=== PATIENT | male | born 1950 ===

== ENCOUNTER 2018-04-22 10:37 | Day surgery (SDC) | payer OTHER ==
[2018-04-22] MEDS ORDERED: LIDOCAINE 1% 2 ML INJ ID PRN (11:00)
[2018-04-22] MEDS ORDERED: LR 1,000 ML IV ONE (11:00)
--- NOTE | 2018-04-22 12:07 | PDANEPAE ---
ANE Past Medical History - Cardiovascular History Hx Hypertension: No Hx Arrhythmias: No Hx Chest Pain: No Hx Coronary Artery / Peripheral Vascular Disease: No Hx CHF / Valvular Disease: No Hx Palpitations: No - Pulmonary History Hx COPD: No Hx Asthma/Reactive Airway Disease: No Hx Recent Upper Respiratory Infection: No Hx Oxygen in Use at Home: No Hx Sleep Apnea: No Sleep Apnea Screening Result - Last Documented: Negative - Neurologic History Hx Cerebrovascular Accident: No Hx Seizures: No Hx Dementia: No - Endocrine History Hx Diabetes: No - Renal History Hx Renal Disorders: No - Liver History Hx Hepatic Disorders: No - Neurological & Psychiatric Hx Hx Neurological and Psychiatric Disorders: No - Cancer History Hx Cancer: No - Congenital Disorder History Hx Congenital Disorders: No - GI History Hx Gastrointestinal Disorders: Yes Gastrointestinal History Comment: HX OF POLYP. IBS - Other Health History Other Health History: NEG - Chronic Pain History Chronic Pain: No - Surgical History Prior Surgeries: PREV COLONOSCOPY/EGD. DIVYA ING HERNIA AGE 9. REMVL LT TESTICAL FOR GROWTH AGE 26 ANE Review of Systems Review of Systems: - Exercise capacity METS (RN): 5 METS ANE Patient History - Allergies Allergies/Adverse Reactions: No Known Allergies Allergy (Unverified 03/25/18 11:52) - Home Medications Home Medications: Amitiza BID 03/25/18 [Last Taken 1 Day Ago ~04/21/18] Aspirin 81mg (*) DAILY 03/25/18 [Last Taken 04/18/18] Herbals/Supplements -Info Only DAILY 03/25/18 [Last Taken 2 Days Ago ~04/20/18] Omeprazole DAILY 03/25/18 [Last Taken 1 Day Ago ~04/21/18] - NPO status NPO Since - Liquids (Date): 04/22/18 NPO Since - Liquids (Time): 02:00 NPO Since - Solids (Date): 04/21/18 NPO Since - Solids (Time): 06:00 - Smoking Hx Smoking Status: Former smoker ANE Labs/Vital Signs - Vital Signs Blood Pressure: 122/63 Heart Rate: 63 Respiratory Rate: 18 O2 Sat (%): 90 Height: 167.64 cm Weight: 63.503 kg ANE Physical Exam - Airway Neck exam: FROM Mallampati Score: Class 2 Mouth exam: normal dental/mouth exam - Pulmonary Pulmonary: no respiratory distress - Cardiovascular Cardiovascular: regular rate and rhythym - ASA Status ASA Status: II ANE Anesthesia Plan Total IV Anesthesia: Yes
[2018-04-22] MEDS ORDERED: LIDOCAINE 2% 100 MG/5 ML SYR ONE (12:13)
[2018-04-22] MEDS ORDERED: PROPOFOL/EMULSION 500 MG/50 ML BOTTLE IV ONE (12:13)
--- NOTE | 2018-04-22 12:15 | PDGENHP ---
History & Physical Chief Complaint: Barretts esophagus, Personal history of colon polyps History of Present Illness: Surveillance EGD for Barretts esophagus. Personal history of colon polyps Pertinent Past, Social, Family History: No FH Colon cancer. No FH Barretts. No Tobacco. No ETOH Relevant Physical Exam: NAD. NC/AT. OP clear. No JVD. CTA B/L. RRR without m/ r/g. GI soft. NABS. NT/ND Cardiorespiratory Assessment: ASA II. EGD. Colonoscopy with MAC
--- NOTE | 2018-04-22 12:28 | GIREPORT ---
[facility] - Endoscopy Department Patient Name: Parmjit Moore Procedure Date: 04/22/2018 12:15 PM Patient Type: Outpatient Attending MD/ ER Physician: Catracho Alonso MD Procedure: Upper GI endoscopy Indications: Mesa's esophagus Providers: Catracho Alonso MD Medicines: Propofol per Anesthesia Complications: No immediate complications. Description of Procedure: After obtaining informed consent, the endoscope was passed under direct vision. Throughout the procedure, the patient's blood pressure, pulse, and oxygen saturations were monitored continuously. The Endoscope was intro duced through the mouth, and advanced to the second part of duodenum. [facility] er GI endoscopy was accomplished without difficulty. The patient tolerated th e procedure well. Findings: The esophagus and gastroesophageal junction were examined with white li ght from a forward view and retroflexed position. There were esophageal muc osal changes consistent with long-segment Mesa's esophagus. These changes involved the mucosa at the upper extent of the gastric folds (40 cm fro m the incisors) extending to the Z-line (36 cm from the incisors). Squamous islands were present at 36 cm and squamous islands were present at 38 c m. The maximum longitudinal extent of these esophageal mucosal changes was 4 cm in length. Mucosa was biopsied with a cold forceps for histology. A tot al of 2 specimen bottles were sent to pathology. A medium-sized hiatal hernia was present. The stomach was normal. The examined duodenum was normal. Estimated Blood Loss: Estimated blood loss was minimal. Post Op Diagnosis: - Esophageal mucosal changes consistent with long-segment Mesa's esophagus. Biopsied. - Medium-sized hiatal hernia. - Normal stomach. - Normal examined duodenum. Recommendation: - Await pathology results. - Repeat upper endoscopy in 3 years for surveillance based on pathology results. - Resume previous diet. - Continue present medications. - Patient has a contact number available for emergencies. The signs and symptoms of potential delayed complications were discussed with the pat ient. Return to normal activities tomorrow. Written discharge instructions we re provided to the patient. - Thank you for allowing me to be involved in the care of your patient. Attending Participation: I personally performed the entire procedure without the assistance of a fellow, resident or surg ical geriatric nurse assistant. Catracho Alonso MD Catracho Alonso MD 04/22/2018 12:28:18 PM This report has been signed electronicallyDavid MD Celeste Number of Addenda: 0 Note Initiated On: 04/22/2018 12:15 PM [email or web address]
--- NOTE | 2018-04-22 12:55 | GIREPORT ---
[facility] Surgical Services - Endoscopy Department Patient Name: Parmjit Moore Procedure Date: 04/22/2018 12:28 PM Patient Type: Outpatient Attending MD/ ER Physician: Catracho Alonso MD Procedure: Colonoscopy Indications: High risk colon cancer surveillance: Personal history of sessile serrat ed colon polyp (10 mm or greater in size), High risk colon cancer surveill ance: Personal history of sessile serrated colon polyp with dysplasia Providers: Catracho Alonso MD Medicines: Propofol per Anesthesia Complications: No immediate complications. Description of Procedure: After obtaining informed consent, the scope was passed under direct vis ion. Throughout the procedure, the patient's blood pressure, pulse, and oxyg en saturations were monitored continuously. The Colonoscope with irrigatio n channel was introduced through the anus and advanced to the cecum, identified by appendiceal orifice and ileocecal valve. The colonoscopy was performed without difficulty. The patient tolerated the procedure well. The quality of the bowel preparation was good. The ileocecal valve, appendi ceal orifice, and rectum were photographed. Findings: The digital rectal exam findings include enlarged prostate. Pertinent negatives include normal sphincter tone and no palpable rectal lesions. A 14 mm post polypectomy scar was found in the proximal ascending colon . There was no evidence of the previous polyp. Biopsies were taken with a cold forceps for histology across the polypectomy scar to exclude any possib ility of residual serrated adenoma. Multiple small and large-mouthed diverticula were found in the sigmoid colon and descending colon. Estimated Blood Loss: Estimated blood loss: none. Post Op Diagnosis: - Enlarged prostate found on digital rectal exam. - Post-polypectomy scar in the proximal ascending colon. Biopsied. - Diverticulosis in the sigmoid colon and in the descending colon. Recommendation: - Await pathology results. - Repeat colonoscopy in 3 years for surveillance. - Resume previous diet. - Continue present medications. - Patient has a contact number available for emergencies. The signs and symptoms of potential delayed complications were discussed with the pat ient. Return to normal activities tomorrow. Written discharge instructions we re provided to the patient. - Thank you for allowing me to be involved in the care of your patient. Attending Participation: I personally performed the entire procedure without the assistance of a fellow, resident or surg ical paraprofessional education assistant. Catracho Alonso MD Catracho Alonso MD 04/22/2018 12:55:26 PM This report has been signed electronicallyDavid MD Celeste Number of Addenda: 0 Note Initiated On: 04/22/2018 12:28 PM Total Procedure Duration Time 0 hours 17 minutes 44 seconds [email or web address]
[2018-04-22] MEDS ORDERED: NALOXONE HCL 0.4 MG/ML INJ IVP PRN (12:56)
[2018-04-22] MEDS ORDERED: ALBUTEROL 3 ML DEYVIAL IH PRN (12:56)
--- NOTE | 2018-04-22 12:57 | POSTANESTH ---
Post Anesthetic Evaluation Cardiovascular Status: Similar to Pre-Op Cond Respiratory Status: Similar to Pre-op Cond. Level of Consciousness/Mental Status: Mildly Sleepy, Arousable Pain Control: Adequate, Prn Tx Ordered Nausea/Vomiting Control: Adequate, Prn Tx Ordered Complications Possibly Related to Anesthesia: None Noted
[2018-04-22 14:03] VITALS: BP 114/49
== END 2018-04-22 14:05 | disposition home or self-care (01) ==
LOC: FSGY 10:37
PROVIDERS: ATTEND Internal Medicine Gastroenterology
PROC: 0DBK8ZX Excision of Ascending Colon, Via Natural or Artificial Opening Endoscopic, Diagnostic (ICD-10-PCS; principal; 2018-04-22 12:00)
PROC: 0DB58ZX Excision of Esophagus, Via Natural or Artificial Opening Endoscopic, Diagnostic (ICD-10-PCS; principal; 2018-04-22 12:00)
DX: Z12.11 Encounter for screening for malignant neoplasm of colon (principal); K22.70 Barrett's esophagus without dysplasia; K57.30 Diverticulosis of large intestine without perforation or abscess without bleeding
CPT/HCPCS: J2001; J2704